=== PATIENT | female | born 1960 | race Asian ===

== ENCOUNTER 2018-09-13 12:22 | Emergency (ER) | payer BC ==
[~2018-09-13] VITALS: Ht 149.9 cm; Wt 56.8 kg
[2018-09-13 12:42] VITALS: BP 144/70; PULSE 51; RESP 18; Ht 149.9 cm; Wt 56.8 kg
[2018-09-13] MEDS ORDERED: ONDANSETRON 4 MG INJ IV STA (12:56)
[2018-09-13] MEDS ORDERED: SOD CHLORIDE 0.9% 500 ML IV STA (12:56)
--- NOTE | 2018-09-13 13:28 | ERD ---
ER Documentation Chief Complaint Chief Complaint Pt BIB RA 889 with c/o dizziness and vomiting since prior to EMS arrival. HPI This is a 57-year-old female with a past medical history of hypertension, previous episodes of vertigo who is presenting with sudden onset dizziness with nausea with 2 episodes of nonbilious nonbloody vomiting. She felt like the room was spinning. Her symptoms are exacerbated by opening her eyes, looking around or movement of her head. Her symptoms are improved with sitting still and keeping her eyes closed. The patient does not endorse any focal deficits. She does not endorse any weakness or numbness or tingling to the face or extremities. This began this afternoon while shopping at [employer]. The patient denies feeling sick recently. The patient denies fever or chills. The patient has had no headache. She does not endorse any double vision or blurry vision. She does not endorse any photophobia or phonophobia. The patient does not endorse neck or back pain. The patient denies lightheadedness or dizziness. The patient has had no chest pain or trouble breathing. The patient denies abdominal pain. The patient denies changes to bowel movements or urination. The patient has had no focal deficits. The patient has had no weakness or numbness or tingling to the face or extremities. ROS All systems reviewed and are negative except as per history of present illness. Medications Home Meds Reported Medications Chlorthalidone* (Chlorthalidone*) 25 Mg Tablet, 25 MG PO DAILY, TAB 09/13/18 Olmesartan Medoxomil (Benicar) 20 Mg Tablet, 20 MG PO DAILY, #30 TAB 09/13/18 Allergies Allergies: Coded Allergies: Sulfa (Sulfonamide Antibiotics) (Verified Allergy, Intermediate, unsure of reaction, 09/13/18) PMhx/Soc History of Surgery: Yes ( X2 ) Anesthesia Reaction: No Hx Neurological Disorder: No Hx Respiratory Disorders: No Hx Cardiac Disorders: Yes (Hypertension) Hx Psychiatric Problems: No Hx Miscellaneous Medical Probl: Yes (Vertigo) Hx Alcohol Use: No Hx Substance Use: No Hx Tobacco Use: No Smoking Status: Never smoker FmHx Family History: No diabetes Physical Exam Vitals Vital Signs Date Temp Pulse Resp B/P (MAP) Pulse Ox O2 O2 Flow FiO2 Time Delivery Rate 09/13/18 98.0 51 18 144/70 100 12:42 (94) Physical Exam Const: No apparent distress, well-developed, well-nourished Head: Normocephalic, Atraumatic Eyes: Normal Conjunctiva. Left beating nystagmus. Abnormal head impulse test. No skew deviation. Extraocular movements otherwise intact. Pupils equal, round and reactive to light ENT: Normal External Ears, Nose and Mouth. Neck: Full range of motion. No meningismus. Resp: Clear to auscultation bilaterally, No wheezes, rales or rhonchi Cardio: Regular rate and rhythm. No murmurs, rubs or gallops Abd: Soft, non tender, non distended. Normal bowel sounds Skin: No petechiae or rashes Back: No midline tenderness. No CVA tenderness Ext: No cyanosis, or edema Neur: Awake and alert, oriented 4. Cranial nerves intact. No facial droop. Normal strength, sensation and coordination. Psych: Normal Mood and Affect Result Diagram: 09/13/18 1308 09/13/18 1308 Results 24 hrs Laboratory Tests Test 09/13/18 13:08 09/13/18 13:36 09/13/18 14:40 White Blood Count 12.2 10^3/ul Red Blood Count 4.45 10^6/ul Hemoglobin 14.0 g/dl Hematocrit 42.9 % Mean Corpuscular Volume 96.4 fl Mean Corpuscular Hemoglobin 31.5 pg Mean Corpuscular 32.6 g/dl Hemoglobin Concent Red Cell Distribution Width 12.9 % Platelet Count 261 10^3/UL Mean Platelet Volume 10.2 fl Immature Granulocytes % 1.300 % Neutrophils % 72.6 % Lymphocytes % 17.7 % Monocytes % 6.6 % Eosinophils % 1.2 % Basophils % 0.6 % Nucleated Red Blood Cells % 0.0 /100WBC Immature Granulocytes # 0.160 10^3/ul Neutrophils # 8.8 10^3/ul Lymphocytes # 2.2 10^3/ul Monocytes # 0.8 10^3/ul Eosinophils # 0.2 10^3/ul Basophils # 0.1 10^3/ul Nucleated Red Blood Cells # 0.0 10^3/ul Sodium Level 143 mmol/L Potassium Level 4.2 mmol/L Chloride Level 102 mmol/L Carbon Dioxide Level 32 mmol/L Anion Gap 9 Blood Urea Nitrogen 21 mg/dl Creatinine 0.73 mg/dl Est Glomerular Filtrat > 60 mL/min Rate mL/min Glucose Level 91 mg/dl Calcium Level 9.6 mg/dl Total Bilirubin 0.3 mg/dl Direct Bilirubin 0.00 mg/dl Indirect Bilirubin 0.3 mg/dl Aspartate Amino 33 IU/L Transf (AST/SGOT) Alanine 25 IU/L Aminotransferase (ALT/SGPT) Alkaline Phosphatase 61 IU/L Troponin I < 0.012 ng/ml Total Protein 7.8 g/dl Albumin 4.3 g/dl Bedside Glucose 69 mg/dL Urine Color YELLOW Urine Clarity CLOUDY Urine pH 7.0 Urine Specific Dawes 1.018 Urine Ketones TRACE mg/dL Urine Nitrite NEGATIVE mg/dL Urine Bilirubin NEGATIVE mg/dL Urine Urobilinogen NEGATIVE mg/dL Urine Leukocyte Esterase TRACE Fredy/ul Urine Microscopic RBC 2 /HPF Urine Microscopic WBC 4 /HPF Urine Squamous Epithelial Cells FEW /HPF Urine Bacteria FEW /HPF Urine Mucus FEW /HPF Urine Yeast (Budding) FEW /HPF Urine Hemoglobin NEGATIVE mg/dL Urine Glucose NEGATIVE mg/dL Urine Total Protein NEGATIVE mg/dl Current Medications Medications Dose Sig/Scott Start Time Status Last (Trade) Ordered Route PRN Stop Time Admin Dose Reason Admin Sodium 500 ml @ Q1H STAT 09/13/18 DC 09/13/18 Chloride 500 mls/hr IV 12:56 13:09 09/13/18 13:55 Ondansetron 4 mg ONCE STAT 09/13/18 DC 09/13/18 HCl (Zofran IV 12:56 13:11 Inj) 09/13/18 12:58 Meclizine 25 mg ONCE ONCE 09/13/18 DC HCl PO 13:30 (Antivert) 09/13/18 13:31 Procedures/MDM MDM The patient's presentation warrants further investigation. Previous medical records, if available, were reviewed. LABS The patient's laboratory testing was obtained and reviewed. No emergent treatment was required unless described below. CBC: Mild leukocytosis without shift, likely reactive. No E/o systemic infection or severe anemia or thrombocytopenia Chemistry: No E/o severe acidosis or renal failure or liver disease or diabetic ketoacidosis. Mild metabolic alkalosis, not emergent. Elevated BUN, concerning for possible dehydration. Troponin: No E/o acute ischemia Urine: No E/o acute infection or hematuria EKG EKG read by me: Rate/Rhythm: Sinus bradycardia at 50 bpm Intervals: Normal [place]: Normal Impression: Sinus bradycardia, otherwise normal EKG. No evidence of acute ischemia or emergent arrhythmia. IMAGING Imaging and Radiology interpretation reviewed. CXR FINDINGS: The heart and mediastinum are within normal limits. The lungs are clear. There is no pleural effusion or pneumothorax. IMPRESSION: No acute disease Electronically viewed and signed by Edson Yoder MD on 09/13/2018 13:32 TREATMENT/DISPOSITION The patient presents for dizziness. The patient has a reassuring hints exam. I do suspect vertigo as the etiology of her symptoms given her current presentation and history of vertigo. The patient has no focal deficits. The neurologic exam is reassuring. I have decreased suspicion for cerebral ischemia, including posterior circulation ischemia. There was no trauma or injury. There is no personal or family history of cerebral aneurysm. I have decreased suspicion for SAH or other ICH. I have low suspicion for temporal arteritis, cavernous venous thrombosis, subdural hematoma, epidural hematoma, meningitis. I do not feel that CT imaging is required at this time. The patient was treated with IV fluids, Zofran and meclizine with improvement of her symptoms. The patient has a reassuring physical exam. The patient is not clinically orthostatic. The patient has no signs of emergent or symptomatic anemia. The patient does not have any emergent electrolyte or metabolic emergencies. I have decrease suspicion for a thyroid disorder. The patient is not toxic appearing. I have decreased suspicion for an infectious etiology of symptoms. The patient's EKG and troponin are reassuring. I have low suspicion for acute coronary syndrome. I do not see evidence of any emergent cardiac arrhythmia, which includes but is not limited to heart block, Brugada syndrome or WPW. The patient has no heart murmurs or rales. The patient was initially bradycardic, but her heart rate improved after receiving medications for nausea and vertigo. I do not suspect bradycardia to be the etiology of her symptoms today. There is no evidence of cardiomegaly on exam or chest xray. I have low suspicion for hypertrophic cardiomyopathy. I do not see evidence of CHF. The patient does not endorse any chest or pleuritic pain. The history is negative for bleeding or clotting disorders. The patient has not been involved in any recent prolonged trips or surgeries or hospitalizations. The patient has no calf tenderness or swelling. I have decreased suspicion for PE as the etiology of symptoms. DISCHARGE Upon reevaluation of the patient, symptoms have improved. No emergent diagnoses were identified. At this time, I feel that the patient stable for discharge. The patient was instructed to follow-up with a primary care physician in 1-3 days. The patient will be given strict precautions with which to return to the emergency department. Prescriptions: Meclizine The patient's blood pressure was elevated at greater than 120/80 while in the emergency department. The patient was otherwise stable with no evidence of hypertensive urgency or emergency. The patient does not require admission for blood pressure control. I have discussed with the patient the risks of hyperte nsion. I have instructed the patient to return to the ER for any new or worsening symptoms including chest pain, shortness of breath, headache, blurred vision, confusion, nausea, vomiting or LOC. I have advised the patient to follow up with the primary care physician for outpatient monitoring and treatment for hypertension in 1-3 days. Disclaimer: Inadvertent spelling and grammatical errors are likely due to EHR/dictation software use and do not reflect on the overall quality of patient care. Note that the electronic time recorded on this note does not necessarily reflect the actual time of the patient encounter. Departure Diagnosis: Primary Impression: Dizziness Additional Impressions: Vertigo Nausea & vomiting Vomiting type: unspecified Vomiting Intractability: non-intractable Qualified Codes: R11.2 - Nausea with vomiting, unspecified Leukocytosis Leukocytosis type: unspecified Qualified Codes: D72.829 - Elevated white blood cell count, unspecified Elevated BUN Dehydration Condition: Stable Patient Instructions: Bradycardia, Dizziness, Unk Cause, Nausea and Vomiting- Adult, Vertigo, Unspecified Additional Instructions: Thank you for for coming to [facility] for your care today. Please ask your nurse or provider if you have questions about your care today and do not leave until all your questions have been answered. Please use any medications given as directed and follow-up with your doctor (or the doctor you were referred to) in the next 1-3 days. If you do not have a primary care doctor you may follow up at the [facility] or [facility] (listed below). You may also use motrin and tylenol as needed for fever and/or pain unless instructed otherwise by your provider or nurse. Indications for more urgent follow-up have been discussed, but you may return to the Emergency Department at ANY time for any worrisome or worsening symptoms. If you have abdominal pain, please know that no test or exam you received is perfect and you should follow up within 8 hours for continued pain. If you had any imaging studies today, such as an X-Ray or CT Scan, these studies will be reviewed later by a radiologist. You will be called if there are important findings that were not identified today, so make sure the contact information you provided at registration is correct. If you received any narcotic pain control medicine today, such as Vicodin, Morphine or Dilaudid, your coordination and judgment may be affected for a number of hours. Please do not drive or operate heavy machinery, and you may want someone to assist you at home. If you were given a prescription for narc otic medication, be aware that it is very addictive- use sparingly and only if necessary. PLEASE SEEK FURTHER EVALUATION AND MANAGEMENT AT YOUR DOCTORS OFFICE WITHIN THE NEXT 1-3 DAYS. IT IS YOUR RESPONSIBILITY TO MAKE AN APPOINTMENT FOR FOLOW-UP CARE. IF YOU HAVE A PRIMARY DOCTOR, PLEASE CALL THEIR OFFICE TO SCHEDULE AN APPOINTMENT FOR FOLLOW UP. IF YOU DO NOT HAVE A PRIMARY DOCTOR YOU CAN CALL OUR PHYSICIAN REFERRAL HOTLINE AT IF YOU CAN NOT AFFORD TO SEE A PHYSICIAN YOU CAN CHOSE FROM THE FOLLOWING [facility] CLINICS: [facility] [address] [facility]. [facility] [address] [facility]. [facility] [address] [facility] [address] [facility] [address] [facility]. [facility]. [address] MICHAEL ABEL MD September 13, 2018 13:21
[2018-09-13] MEDS ORDERED: MECLIZINE 12.5 MG TAB PO ONE (13:30)
[2018-09-13] MEDS ORDERED: OLME20TA20 PO (13:49)
[2018-09-13] MEDS ORDERED: CHLO25TA2 PO (13:50)
[2018-09-13] MEDS ORDERED: MECL12.574 PO (15:09)
== END 2018-09-13 16:57 | disposition home or self-care (01) ==
LOC: E/R 12:22
DX: D72.829 Elevated white blood cell count, unspecified (principal); I10 Essential (primary) hypertension; E86.0 Dehydration
CPT/HCPCS: 36415; 71045; 80048; 80076; 81001; 82962; 84484; 85025; 93005; 96374; 99285; J2405; J7040